=== PATIENT | female | born 1940 | race Two or more races ===

== ENCOUNTER 2022-08-24 09:21 | Outpatient (CLI) | payer MEDICARE, OTHER ==
[2022-08-24] MEDS ORDERED: LIDOCAINE SOLN 4% 50 ML BOTTLE ONE (09:43)
[2022-08-24] MEDS ORDERED: ETHYL CHLORIDE SPRAY 1 EA BOTTLE TP ONE (10:00)
== END 2022-08-24 23:59 | disposition home or self-care (01) ==
LOC: WOU 09:21
PROVIDERS: ATTEND Podiatrist Foot & Ankle Surgery
DX: L60.0 Ingrowing nail (principal); L03.032 Cellulitis of left toe; M79.675 Pain in left toe(s); Z79.82 Long term (current) use of aspirin; Z79.02 Long term (current) use of antithrombotics/antiplatelets
CPT/HCPCS: G0463

== ENCOUNTER 2022-08-31 09:18 | Outpatient (CLI) | payer MEDICARE, OTHER ==
[2022-08-31] MEDS ORDERED: BACI/NEOM/POLY B OINT PKT 1 UDPKT PACKET ONE (09:37)
== END 2022-08-31 23:59 | disposition home health service (06) ==
LOC: WOU 09:18
PROVIDERS: ATTEND Podiatrist Foot & Ankle Surgery
DX: L60.0 Ingrowing nail (principal); M79.675 Pain in left toe(s); I10 Essential (primary) hypertension; Z79.02 Long term (current) use of antithrombotics/antiplatelets; Z79.82 Long term (current) use of aspirin
CPT/HCPCS: 11043; G0463